=== PATIENT | female | born 2000 | race Caucasian/White ===

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

== ENCOUNTER 2021-11-03 14:52 | Emergency (ER) | payer OTHER, MEDICAID, SELFPAY ==
--- NOTE | ~2021-11-03 | XR_ITS ---
XR ankle LT min 3V 11/03/2021 15:24 INDICATION: Left ankle pain PROCEDURE: 4 views left ankle COMPARISON: No prior studies for comparison. FINDINGS: Fracture, dislocation or subluxation is not identified. Ankle mortise intact. The soft tiss ues appear within normal limits. No foreign bodies are identified. IMPRESSION: 1: NO ACUTE BONE OR JOINT ABNORMALITY IDENTIFIED. Reviewed, dictated and finalized at location A.
[2021-11-03 15:12] VITALS: BP 119/72; PULSE 75; RESP 16; TEMP 36.6; O2SAT 100
--- NOTE | 2021-11-03 15:17 | ED.LOWEXIN ---
HPI - Extremity Injury (Lower) General Chief Complaint: Extremity Injury, Lower Stated Complaint: Left Ankle Injury Time Seen by Provider: 11/03/21 15:17 Source: patient Mode of arrival: ambulatory Limitations: no limitations History of Present Illness HPI Narrative: Ms. Sheehan is a 21-year-old female patient presenting to the clinic today with complaints of left ankle pain after rolling it yesterday while at work. She reports she has mild pain with walking however the pain is worse with or so flexion of the foot. Reports pain is just to the lateral ankle only. Related Data Home Medications Medication Instructions Recorded Confirmed No Home Medications 11/03/21 11/03/21 Allergies Allergy/AdvReac Type Severity Reaction Status Date / Time No Known Allergies Allergy Verified 11/03/21 15:15 Review of Systems Review of Systems: Pertinent positives per HPI. Patient denies any fever, chills, rash, headache, visual changes, dizziness, cough, runny nose, sore throat, shortness of breath, chest pain, palpitations, nausea, vomiting, diarrhea, constipation, abdominal pain, or any urinary issues. PMFSH Comments At the time of my signature, I reviewed and agree with the nursing past medical, surgical, social, and family history. There is no relevant family history pertinent to the patient complaint. Exam Narrative: General: Well-developed, well nourished, in no apparent distress Head: Normocephalic, atraumatic. Cardio: Regular rate and rhythm, s1 and s2 normal, no murmur appreciated. Resp: Clear to auscultation bilaterally, no rhonchi, rales, wheezing or rubs. Musculoskeletal: No deformity, mild tender to palpation over the distal lateral malleolus and pain with dorsiflexion and plantar flexion against resistance, grossly normal range of motion, muscle strength strong and equal, peripheral pulse strong, no edema, no cyanosis, normal gait and station Course Course Emergency Course: Portions of this record may have been created with voice recognition software. Level of Care: Express Care Visit Vital Signs Vital signs: Vital Signs Temperature 36.6 C 11/03/21 15:12 Pulse Rate 75 11/03/21 15:12 Respiratory Rate 16 11/03/21 15:12 Blood Pressure 119/72 11/03/21 15:12 Pulse Oximetry 100 11/03/21 15:12 Oxygen Delivery Room Air 11/03/21 15:12 Temperature 36.6 C 11/03/21 15:12 Pulse Rate 75 11/03/21 15:12 Respiratory Rate 16 11/03/21 15:12 Blood Pressure 119/72 11/03/21 15:12 Pulse Oximetry 100 11/03/21 15:12 Oxygen Delivery Room Air 11/03/21 15:12 Vital signs reviewed MDM - Extremity Injury (Lower) MDM Narrative Medical decision making narrative: At the time of visit patient is resting comfortably on the exam table. X-ray was performed and was negative for any fracture or malalignment of the left ankle. I suspect the patient has an ankle sprain and RICE treatment was explained to the patient she voiced understanding of discharge instructions and agrees to the treatment plan. Differential Diagnosis Differential diagnosis: Likely ankle sprain and strain and ankle fracture Imaging Data Attestation: I personally reviewed and interpreted this imaging study as follows: My impression: X-rays negative for any fracture or malalignment of the left ankle Radiologist's impression: Close Ankle X-Ray (Signed) Han Wagner - 11/03/21 Launch?[facility] [place] [id number] XRay Report Signed Patient: Mariajose Sheehan : 2000 MR#: [id number] Age/Sex: 21 / F Acct:[id number] Loc: [facility]? ? ADM Date: 11/03/21Attending Dr: Ordering Physician: Rigo Purdy APRN Date of Service: 11/03/21 Procedure(s): XR ankle LT min 3V Accession Number(s): [id number] cc: Rigo Purdy APRN; LOAN ADVISER PHYSICIAN~ XR ankle LT min 3V 11/03/2021 15:24 INDICAT
== END 2021-11-03 15:40 | disposition home or self-care (01) ==
PROVIDERS: Emergency Provider Nurse Practitioner Family
DX: S93.402A Sprain of unspecified ligament of left ankle, initial encounter (principal); S96.912A Strain of unspecified muscle and tendon at ankle and foot level, left foot, initial encounter; X50.9XXA Other and unspecified overexertion or strenuous movements or postures, initial encounter; Y99.0 Civilian activity done for income or pay
CPT/HCPCS: 73610; 99213; G0463

== ENCOUNTER 2023-01-27 13:56 | Emergency (ER) | payer OTHER, MEDICAID, SELFPAY ==
--- NOTE | ~2023-01-27 | XR_ITS ---
EXAM: XR wrist RT min 3V DATE: 01/27/2023 14:20 HISTORY: fall one week ago, right wrist pain radial side . COMPARISON: 05/01/2011. FINDINGS: Normal mineralization. No fracture or dislocation. No lytic or blastic lesion. Joint space s are maintained. No erosion or periosteal change. Soft tissues within normal limits. IMPRESSION: No acute osseous finding in the right wrist. Reviewed, dictated and finalized at location K.
[2023-01-27 14:15] VITALS: BP 131/91; PULSE 94; RESP 16; TEMP 36.4; O2SAT 99
--- NOTE | 2023-01-27 14:49 | ED.GENADULT ---
HPI - General Adult General Chief complaint: Extremity Injury, Upper Stated complaint: Right Wrist Injury Source: patient Mode of arrival: ambulatory Limitations: no limitations History of Present Illness HPI narrative: Patient presents for evaluation of right wrist pain for last 6 days. She was playing softball and the ball bounced off the ground, hitting her in the wrist. She reports bruising in the affected area. She rates her pain 6/10 in severity. She is not taking any medication to assist with her symptoms. No loss of range of motion. No paresthesias. She is right-hand dominant. Related Data Home Medications Medication Instructions Recorded Confirmed No Home Medications 11/03/21 11/03/21 Allergies Allergy/AdvReac Type Severity Reaction Status Date / Time No Known Allergies Allergy Verified 11/03/21 15:15 Review of Systems Review of Systems: CONSTITUTIONAL: Denies fever, chills, or sweats. EYES: Denies visual changes, redness, or discharge. ENT: Denies rhinorrhea, congestion, sore throat, or otalgia. CARDIOVASCULAR: Denies chest pain, palpitations, or edema. RESPIRATORY: Denies cough or dyspnea. GASTROINTESTINAL: Denies abdominal pain, nausea, vomiting, or diarrhea. GENITOURINARY: Denies dysuria or hematuria. SKIN:Reports bruising to right wrist MUSCULOSKELETAL: Reports pain in right wrist NEUROLOGIC: Denies headache, numbness, dizziness, or weakness. PSYCHIATRIC: Denies anxiety or depression. PMFSH Past Medical History Medical History No pertinent past medical history Surgical History Surgical History No pertinent past surgical history Family History Family History Mother Family history non-contributory Social History Social History Additional living arrangements comments: lives with boyfriend Gender identity (if verbalized by the patient): Female Spiritual care concerns: No Exam Narrative: GENERAL: Well-appearing, well-nourished, and in no acute distress. HEAD: Normocephalic, atraumatic. EYES: PERRLA and EOMI. ENT: Nares clear, no rhinorrhea or epistaxis. Mucous membranes moist. Oropharynx without tonsillar hypertrophy exudate or other lesions. Bilateral TMs pearly natarajan nonbulging NECK: Supple. No adenopathy or masses. No carotid bruits or JVD CHEST: Clear to auscultation. No respiratory distress. No wheezes rales or rhonchi HEART: Regular rate and rhythm. No murmur heard. Normal peripheral pulses. ABDOMEN: Soft, nontender, nondistended, normal active bowel sounds. EXTREMITIES: Tenderness noted throughout the right wrist without crepitus or deformity. Full range of motion of the right wrist intact. 5/5 hand range master strength bilaterally. SKIN: Ecchymosis noted to the right wrist. Skin is warm, dry and intact. NEURO: No focal deficits. Alert and oriented x3. PSYCH: Normal mood and affect. Course Course Emergency Course: This is a 22-year-old female who presented for evaluation of wrist pain following an injury 6 days ago. X-ray negative for fracture. Exam is consistent with contusion. Recommend NSAIDs for pain and RICE therapy. Advised to purchase OTC velcro wrist splint. Follow up with primary provider. Go to the ER for worsening symptoms. Pt in agreement with plan of care. Level of Care: Express Care Visit Vital Signs Vital signs: Vital Signs Temperature 36.4 C L 01/27/23 14:15 Pulse Rate 94 01/27/23 14:15 Respiratory Rate 16 01/27/23 14:15 Blood Pressure 131/91 H 01/27/23 14:15 Pulse Oximetry 99 01/27/23 14:15 Temperature 36.4 C L 01/27/23 14:15 Pulse Rate 94 01/27/23 14:15 Respiratory Rate 16 01/27/23 14:15 Blood Pressure 131/91 H 01/27/23 14:15 Pulse Oximetry 99
== END 2023-01-27 14:58 | disposition home or self-care (01) ==
PROVIDERS: Emergency Provider Nurse Practitioner
DX: S60.221A Contusion of right hand, initial encounter (principal); S60.211A Contusion of right wrist, initial encounter; W21.07XA Struck by softball, initial encounter; Y93.64 Activity, baseball
CPT/HCPCS: 73110; 99213; G0463